=== PATIENT | female | born 1930 | race Caucasian/White ===

== ENCOUNTER → 2018-11-15 | Outpatient (CLI) | payer MEDICARE ==
[~2018-11-15] VITALS: Ht 154.9 cm; Wt 51.7 kg
[~2018-11-15] MED LIST: ACDPT PO; AMLO5TAB2 PO; ASCO-262 PO; ASPI-875 PO; CALC600T PO; CATHETER FLUSH 10 ML SYR IV PRN; CHOL200018 PO; CYCL10TA9 PO; ESTR0.455 PO; HCT25T PO; HYDR200T46 PO; KLOR CON PO; LACT1CAP8 PO; LOSA100T16 PO; MTP100TCR PO; MULT-963 PO; NAPR220T76 PO; NITR50CA28 PO; PLAQUENIL PO; POTA8TAB PO; REGADENOSON 0.4 MG/5 ML SYR (LEXISCAN) IV ONE; SMV20T PO; TRIM100T7 PO; TRM50T PO
[2018-11-15 08:22] VITALS: BP 151/71
--- NOTE | 2018-11-16 13:45 | Cardiology Stress Test Report ---
Stress Test Report Type of NM Stress Test: Test Type: LEXISCAN 0.4MG/5ML Date of Procedure/Referring: Date of Procedure: Nov 15, 2018 PCP Wesley Obrien DO Admitting Physician Welsey Obrien DO Indications: Chest pain Baseline Heart Rate: 56 Baseline Blood Pressure: Blood Pressure Systolic: 151 Blood Pressure Diastolic: 71 Baseline EKG: Baseline EKG: sinus rhythm Summary & Conclusion: Summary: The patient was brought to the stress lab after informed consent was taken. Stress test was performed according to the Lexiscan protocol. 0.4 mg of IV Lexiscan was given. Low-grade exercise was performed. Baseline EKG showed sinus rhythm at 56 BPM. Maximum heart rate was 82 bpm and blood pressure 151/71 mmHg. Patient did not have any chest pain, arrhythmias or ST segment changes during the stress test. 10.23 mCi of Myoview were given for rest imaging and 32.4 mCi of Myoview given for stress imaging. Transient ischemic dilatation score 1.31 which is likely inaccurate, EF 78 percent. Normal wall motion. Normal myocardial perfusion imaging during rest and stress. Conclusion: Pharmacological stress test was negative for ischemia. Normal LV function with no wall motion abnormalities. Normal myocardial perfusion imaging during rest and stress. Gloria CHIANG MD Nov 16, 2018 13:45
== END ==
LOC: CARD 06:22
PROVIDERS: ATTEND Internal Medicine
DX: R07.9 Chest pain, unspecified (principal)
CPT/HCPCS: 78452; 93017

== ENCOUNTER 2020-08-17 21:26 | Emergency (ER) | payer MEDICARE ==
[~2020-08-17] VITALS: Ht 152.4 cm; Wt 51.3 kg
[~2020-08-17 21:26] MED LIST changes: -CATHETER FLUSH 10 ML SYR IV PRN; -REGADENOSON 0.4 MG/5 ML SYR (LEXISCAN) IV ONE
[2020-08-17 21:35] VITALS: BP 134/79
--- NOTE | 2020-08-17 21:52 | ED EENT ---
History of Present Illness General Chief Complaint: Oral/Throat Problems Stated Complaint: TONGUE BLEEDING History of Present Illness Date Seen by Provider: August 17, 2020 Time Seen by Provider: 21:45 Initial Comments 89-year-old female presents with bleeding on her tongue. Patient was on Coumadin until a few days ago and stopped it because her INR was too high. Sta rted it for unknown cardiac concerns. Noticed some blood on the top of her tongue few hours prior to arrival and she has not been able to get it to stop bleeding. Otherwise, feeling well without any complaint. Allergies and Home Medications Allergies Coded Allergies: Levofloxacin (Verified Allergy, Severe, ANAPHYLAXIS, 09/25/07) Codeine (Verified Allergy, Unknown, 09/22/07) Etodolac (Verified Allergy, Unknown, 09/22/07) Meperidine (Verified Allergy, Unknown, 09/22/07) Nitrofurantoin (Verified Allergy, Unknown, 09/22/07) Sulfa(Sulfonamide Antibiotics) (Verified Allergy, Unknown, 09/22/07) acetaminophen (Verified Allergy, Unknown, 09/22/07) iodine (Verified Allergy, Unknown, 09/22/07) morphine (Verified Allergy, Unknown, 09/22/07) naproxen (Verified Allergy, Unknown, 09/22/07) propoxyphene (Verified Allergy, Unknown, 09/22/07) cefuroxime axetil (Unverified Allergy, NAUSEA, 07/31/12) celecoxib (Unverified Allergy, 07/31/12) ABD PAIN diphenhydramine HCl (Unverified Allergy, 07/31/12) CAUSES RESTLESS LEG SYNDROME doxycycline (Unverified Allergy, NAUSEA, 07/31/12) lansoprazole (Unverified Allergy, NAUSEA, 07/31/12) lidocaine (Unverified Allergy, 07/31/12) PT UNSURE OF REACTION nizatidine (Unverified Allergy, NAUSEA, 07/31/12) Home Medications Acetaminophen/Diphenhydramine 1 Ea Tab, 1 TAB PO HS PRN, (Reported) PRN SLEEP 25-500 MG Amlodipine Besylate 5 Mg Tablet, 5 MG PO DAILY, (Reported) WITH EVENING MEAL Ascorbate Calcium 500 Mg Tablet, 500 MG PO DAILY, (Reported) Aspirin 81 Mg Tablet.dr, 81 MG PO DAILY, (Reported) Calcium Carbonate 600 Mg Tablet, 1,200 MG PO DAILY, (Reported) Cholecalciferol (Vitamin D3) 2,000 Unit Capsule, 2,000 UNIT PO DAILY, (Reported) Cyclobenzaprine Hcl 10 Mg Tablet, 1 EACH PO Q8HR PRN, (Reported) Hydrochlorothiazide 25 Mg Tab, 25 MG PO DAILY, (Reported) Hydroxychloroquine Sulfate 200 Mg Tab, 200 MG PO DAILY, (Reported) Lactobacillus Acidophilus 1 Each Capsule, 1 CAP PO DAILY, (Reported) Losartan Potassium 100 Mg Tablet, 100 MG PO DAILY, (Reported) Metoprolol Succinate 100 Mg Tab, 150 MG PO DAILY, (Reported) Multivitamin 1 Each Tablet, 1 TAB PO DAILY, (Reported) Naproxen Sodium 220 Mg Tablet, 440 MG PO DAILY, (Reported) Nitrofurantoin Macrocrystals 50 Mg Capsule, 50 MG PO DAILY FOR 15 DAYS, (Reported) ALTERNATES EVERY 15 DAYS WITH TRIMETHOPRIM Potassium Chloride 8 Meq Tablet.sa, 16 MEQ PO DAILY, (Reported) Simvastatin 20 Mg Tab, 20 MG PO EVERY EVENING, (Reported) Tramadol Hcl 50 Mg Tab, 50 MG PO Q4H PRN, (Reported) Trimethoprim 100 Mg Tablet, 100 MG PO DAILY FOR 15 DAYS, (Reported) STARTS 5 AND TAKES FOR 15 DAY THEN ALTERNATES WITH NITROFURANTOIN FOR 15 DAYS Patient Home Medication List Home Medication List Reviewed: Yes Review of Systems Review of Systems Constitutional: No fever, No malaise, No weakness Eyes: No Symptoms Reported Ears: No Symptoms Reported Nose: no symptoms reported Mouth: see HPI, other (bleeding from tongue) Cardiovascular: no symptoms reported; No chest pain, No edema, No palpitations, No syncope Past Lqayqvp-Hefkvh-Agvcif Hx Past Med/Social Hx: Reviewed Nursing Past Med/Soc Hx Immunizations Up To Date Date of Pneumonia Vaccine: August 05, 2008 Past Medical History Reproductive Disorders: No Physical Exam Height, Weight, BMI Height: 5'1.00" Weight: 114lbs. 0.0oz. [id number]; 21.5 BMI Method: General Appearance: WD/WN, no apparent distress Nose: normal inspection; No active bleeding Mouth/Throat: normal mouth inspection, pharynx normal; No foreign body, No mandibular swelling, No maxillary swelling, No pharynx swelling, No pharynx tenderness, No tongue swollen, No tonsillar exudate, No tonsillar swelling, No trismus, No uvula swelling, No voice changes; other (very small bleeding from fi ssure in anterior dorsum of tongut. slowly oozing) Progress/Results/Core Measures Progress Progress Note : Progress Note attempted silver nitrate cautery x 2 without success, continues to slowly ooze. very small amount, but persists. Pt given a little surgicel and instructed to apply with gauze tonight follow up if not improving or worse Departure Impression Primary Impression: Excessive anticoagulation Disposition: 01 HOME, SELF-CARE Condition: Unchanged Departure-Patient Inst. Decision time for Depature: 21:51 Referrals: ARIAS OBRIEN DO (PCP/Family) Primary Care Physician Patient Instructions: Bleeding Precautions Add. Discharge Instructions: Call Dr Obrien's office tomorrow if your tongue is still bleeding. Return to the ER if worse. All discharge instructions reviewed with patient and/or family. Voiced understanding. YURY BAL DO August 17, 2020 21:52
== END 2020-08-17 22:05 | disposition home or self-care (01) ==
LOC: EDUNIT# 21:26 → ER FS 21:27
DX: T45.511A Poisoning by anticoagulants, accidental (unintentional), initial encounter (principal); K14.8 Other diseases of tongue
CPT/HCPCS: 99282

== ENCOUNTER 2020-08-18 17:00 | Day surgery (SDC) | payer MEDICARE ==
[~2020-08-18] VITALS: Wt 51.3 kg
[2020-08-18 17:10] VITALS: BP 137/88
[2020-08-18] MEDS ORDERED: PHYTONADIONE (VIT. K) 10 MG/ML AMP SQ ONE (17:15)
== END 2020-08-18 17:35 ==
LOC: SDC 17:00
PROVIDERS: ATTEND Internal Medicine
DX: R10.9 Unspecified abdominal pain (principal); R11.2 Nausea with vomiting, unspecified; I10 Essential (primary) hypertension; Z79.82 Long term (current) use of aspirin; Z79.899 Other long term (current) drug therapy; Z79.01 Long term (current) use of anticoagulants
CPT/HCPCS: 96372

== ENCOUNTER 2021-01-20 09:51 | Emergency (ER) | payer MEDICARE ==
[~2021-01-20] VITALS: Ht 154.9 cm; Wt 51.3 kg
--- NOTE | 2021-01-20 10:13 | ED Fall/Injury ---
General Chief Complaint: Trauma-Non Activation Stated Complaint: FALL Nursing Triage Note: PT AMBULATE TO ROOM FS01 WITH C/O HEAD AND NECK PAIN AFTER FALLING IN THE BATHROOM TODAY. PT AND FAMILY REPORT LOC. BUMP TO POST HEAD AND ABRASION TO UPPER BACK NOTED UPON ARRIVAL. Source: patient, family History of Present Illness Date Seen by Provider: Jan 20, 2021 Time Seen by Provider: 09:54 Initial Comments 89-year-old female presenting with family after having a fall at home. She was walking to the bathroom and tripped and fell. She lost consciousness according to family. Patient states she does not remember the fall or injury. She has a bump to the back of her scalp and in the abrasion and bruising to the upper back. She has tenderness to palpation over the thoracic spine and left of the thoracic spine between her shoulder blade and the T-spine. She has tenderness to palpation on the occiput where she has a scalp hematoma. She has some tenderness to the paraspinal muscles on the neck. She denies any numbness, tingling, weakness in her extremities, change in vision, drainage from her nose or ears, nausea or vomiting. She denies any fever or chills. She has not taken anything for pain prior to arrival. She does take Eliquis as a blood thinner. Location Injury Occurred: home Occurred: this morning Injuries/Pain Location: head, neck, chest (Upper thoracic spine and between T- spine and left shoulder blade) Context: tripped Loss of Consciousness: brief (seconds) Modifying Factors: Worse With Movement Associated Symptoms (Fall): No Abdominal Pain, No Chest Pain, No Confusion, No Dizziness; Headache (Occiput where she has a hematoma); No Lightheadedness, No Nausea/Vomiting; Neck Pain; No Ringing in Ears, No Seizures, No Shortness of Air, No Slurred Speech, No Trouble Walking, No Vision Changes Allergies and Home Medications Allergies Coded Allergies: levofloxacin (Verified Allergy, Severe, ANAPHYLAXIS, 09/25/07) Sulfa (Sulfonamide Antibiotics) (Verified Allergy, Unknown, 09/22/07) acetaminophen (Verified Allergy, Unknown, 09/22/07) cefuroxime axetil (Unverified Allergy, Unknown, NAUSEA, 08/18/20) celecoxib (Unverified Allergy, Unknown, 08/18/20) ABD PAIN codeine (Verified Allergy, Unknown, 09/22/07) diphenhydramine HCl (Unverified Allergy, Unknown, 08/18/20) CAUSES RESTLESS LEG SYNDROME doxycycline (Unverified Allergy, Unknown, NAUSEA, 08/18/20) etodolac (Verified Allergy, Unknown, 09/22/07) iodine (Verified Allergy, Unknown, 09/22/07) lansoprazole (Unverified Allergy, Unknown, NAUSEA, 08/18/20) lidocaine (Unverified Allergy, Unknown, 08/18/20) PT UNSURE OF REACTION meperidine (Verified Allergy, Unknown, 09/22/07) morphine (Verified Allergy, Unknown, 09/22/07) naproxen (Verified Allergy, Unknown, 09/22/07) nitrofurantoin (Verified Allergy, Unknown, 09/22/07) nizatidine (Unverified Allergy, Unknown, NAUSEA, 08/18/20) propoxyphene (Verified Allergy, Unknown, 09/22/07) Patient Home Medication List Home Medication List Reviewed: Yes Acetaminophen/Diphenhydramine (Tylenol Pm) 1 Ea Tab, 1 TAB PO HS PRN, (Reported) Entered as Reported by: MICHELLE SYKES on 07/31/12 1030 Amlodipine Besylate (Amlodipine Besylate) 5 Mg Tablet, 5 MG PO DAILY, (Reported) Entered as Reported by: ETELVINA VALENTINE on 10/15/09 0849 Ascorbate Calcium (Vitamin C) 500 Mg Tablet, 500 MG PO DAILY, (Reported) Entered as Reported by: MICHELLE SYKES on 07/31/12 1030 Aspirin ([place] Aspirin) 81 Mg Tablet.dr, 81 MG PO DAILY, (Reported) Entered as Reported by: MICHELLE SYKES on 07/31/12 1030 Calcium Carbonate (Calcarb 600) 600 Mg Tablet, 1,200 MG PO DAILY, (Reported) Entered as Reported by: MICHELLE SYKES on 07/31/12 1030 Cholecalciferol (Vitamin D3) (Vitamin D-3) 2,000 Unit Capsule, 2,000 UNIT PO DAILY, (Reported) Entered as Reported by: MICHELLE SYKES on 07/31/12 1030 Cyclobenzaprine Hcl (Cyclobenzaprine Hcl) 10 Mg Tablet, 1 EACH PO Q8HR PRN, (Reported) Entered as Reported by: ANAM STEWART on 08/05/12 1430 Hydrochlorothiazide (Hctz) 25 Mg Tab, 25 MG PO DAILY, (Reported) Entered as Reported by: ETELVINA VALENTINE on 10/15/09 0849 Hydroxychloroquine Sulfate (Plaquenil Nf) 200 Mg Tab, 200 MG PO DAILY, (Reported) Entered as Reported by: MICHELLE SYKES on 07/31/12 1030 Lactobacillus Acidophilus (Acidophilus) 1 Each Capsule, 1 CAP PO DAILY, (Reported) Entered as Reported by: MICHELLE SYKES on 07/31/12 1030 Losartan Potassium (Cozaar) 100 Mg Tablet, 100 MG PO DAILY, (Reported) Entered as Reported by: ETELVINA VALENTINE on 10/15/09 0849 Metoprolol Succinate (Toprol Xl) 100 Mg Tab, 150 MG PO DAILY, (Reported) Entered as Reported by: ETELVINA VALENTINE on 10/15/09 0849 Multivitamin (Multi-Vitamin Daily) 1 Each Tablet, 1 TAB PO DAILY, (Reported) Entered as Reported by: MICHELLE SYKES on 07/31/12 1030 Naproxen Sodium (Aleve) 220 Mg Tablet, 440 MG PO DAILY, (Reported) Entered as Reported by: MICHELLE SYKES on 07/31/12 1030 Nitrofurantoin Macrocrystals (Macrodantin) 50 Mg Capsule, 50 MG PO DAILY FOR 15 DAYS, (Reported) Entered as Reported by: MICHELLE SYKES on 07/31/12 1047 Potassium Chloride (Klor-Con 8) 8 Meq Tablet.sa, 16 MEQ PO DAILY, (Reported) Entered as Reported by: RONNI PABON on 10/17/09 0132 Simvastatin (Zocor) 20 Mg Tab, 20 MG PO EVERY EVENING, (Reported) Entered as Reported by: ETELVINA VALENTINE on 10/15/09 0849 Tramadol Hcl (Ultram) 50 Mg Tab, 50 MG PO Q4H PRN, (Reported) Entered as Reported by: ANAM STEWART on 08/05/12 1432 Trimethoprim (Trimethoprim) 100 Mg Tablet, 100 MG PO DAILY FOR 15 DAYS, (Reported) Entered as Reported by: MICHELLE SYKES on 07/31/12 1047 Review of Systems Review of Systems Constitutional: No chills, No dizziness, No fever Eyes: Denies Blurred Vision, Denies Photophobia, Denies Vision Changes Ears, Nose, Mouth, Throat: denies ear pain, denies ear discharge, denies nose pain, denies nose discharge, denies epistaxis Respiratory: No cough Cardiovascular: No chest pain Gastrointestinal: No nausea, No vomiting Genitourinary: No dysuria, No frequency, No hematuria Musculoskeletal: back pain (Upper thoracic back pain and bruising between left shoulder blade and T-spine), neck pain Skin: other (Hematoma to the occiput of the scalp on the left side) Psychiatric/Neurological: Headache; Denies Numbness, Denies Paresthesia, Denies Seizure, Denies Weakness Past Negzpje-Omfriq-Vjfekp Hx Patient Social History Tobacco Use?: No Past Medical History Surgeries: Yes Respiratory: No Cardiac: Yes Coronary Artery Disease Neurological: No Reproductive Disorders: No Genitourinary: No Gastrointestinal: No Musculoskeletal: Yes (LUPUS) Endocrine: No HEENT: No Cancer: No Psychosocial: No Integumentary: No Blood Disorders: No Physical Exam Vital Signs Vital Signs - First Documented 01/20/21 01/20/21 09:58 11:13 Temp 36.0 Pulse 77 Resp 16 B/P (MAP) 154/75 (101) Pulse Ox 97 O2 Delivery Room Air Capillary Refill : Less Than 3 Seconds Height, Weight, BMI Height: 5'1.00" Weight: 114lbs. 0.0oz. 51.920627kd; 21.00 BMI Method: General Appearance: WD/WN, no apparent distress HEENT: PERRL/EOMI, normal ENT inspection, TMs normal, pharynx normal; No photophobia; other (No CSF otorrhea or rhinorrhea. Negative neri sign. 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, alert, normal mood/affect, oriented x 3 Skin: normal color, warm/dry Mike Coma Score Best Eye Response: (4) Open Spontaneously Best Verbal Response: (5) Oriented Best Motor Response: (6) Obeys Commands [place] Total: 15 Progress/Results/Core Measures Results/Orders Lab Results Laboratory Tests Test 01/20/21 10:12 Range/Units White Blood Count 7.1 4.3-11.0 10^3/uL Red Blood Count 3.85 3.80-5.11 10^6/uL Hemoglobin 12.6 11.5-16.0 g/dL Hematocrit 38 35-52 % Mean Corpuscular Volume 98 80-99 fL Mean Corpuscular Hemoglobin 33 25-34 pg Mean Corpuscular Hemoglobin Concent 33 32-36 g/dL Red Cell Distribution Width 12.2 10.0-14.5 % Platelet Count 221 130-400 10^3/uL Mean Platelet Volume 9.6 9.0-12.2 fL Immature Granulocyte % (Auto) 0 % Neutrophils (%) (Auto) 70 42-75 % Lymphocytes (%) (Auto) 12 12-44 % Monocytes (%) (Auto) 10 0-12 % Eosinophils (%) (Auto) 7 0-10 % Basophils (%) (Auto) 1 0-10 % Neutrophils # (Auto) 5.0 1.8-7.8 X 10^3 Lymphocytes # (Auto) 0.9 L 1.0-4.0 X 10^3 Monocytes # (Auto) 0.7 0.0-1.0 X 10^3 Eosinophils # (Auto) 0.5 H 0.0-0.3 10^3/uL Basophils # (Auto) 0.1 0.0-0.1 10^3/uL Immature Granulocyte # (Auto) 0.0 0.0-0.1 10^3/uL Prothrombin Time 22.4 H 12.2-14.7 SEC INR Comment 1.9 H 0.8-1.4 Activated Partial Thromboplast Time 37 H 24-35 SEC Sodium Level 140 135-145 MMOL/L Potassium Level 5.6 H 3.6-5.0 MMOL/L Chloride Level 107 98-107 MMOL/L Carbon Dioxide Level 25 21-32 MMOL/L Anion Gap 8 5-14 MMOL/L Blood Urea Nitrogen 31 H 7-18 MG/DL Creatinine 1.47 H 0.60-1.30 MG/DL Estimat Glomerular Filtration Rate 34 BUN/Creatinine Ratio 21 Glucose Level 120 H 70-105 MG/DL Calcium Level 10.0 8.5-10.1 MG/DL Corrected Calcium 8.5-10.1 MG/DL Total Bilirubin 0.4 0.1-1.0 MG/DL Aspartate Amino Transf (AST/SGOT) 30 5-34 U/L Alanine Aminotransferase (ALT/SGPT) 14 0-55 U/L Alkaline Phosphatase 78 40-136 U/L Total Protein 7.2 6.4-8.2 GM/DL Albumin 4.6 H 3.2-4.5 GM/DL My Orders Orders - JONAS CARRERA MD Ct Head/Cervical Spine Wo (01/20/21 10:04) Ct Chest Wo (01/20/21 10:04) Ice: Apply To Affected Area (01/20/21 10:04) Head Of Bed Q4H (01/20/21 10:04) Cbc With Automated Diff (01/20/21 10:06) Comprehensive Metabolic Panel (01/20/21 10:06) Protime With Inr (01/20/21 10:06) Partial Thromboplastin Time (01/20/21 10:06) Acetaminophen Tablet/Caplet (Tylenol T (01/20/21 10:25) Vital Signs/I&O 01/20/21 01/20/21 09:58 11:13 Temp 36.0 Pulse 77 82 Resp 16 16 B/P (MAP) 154/75 (101) 141/73 Pulse Ox 97 O2 Delivery Room Air Room Air Blood Pressure Mean: 101 Progress Progress Note #1: Progress Note With her having loss of consciousness and not remembering the fall will obtain CT scan of the head, cervical spine, chest to include the thoracic spine and ribs. Give Tylenol for pain. Ice and elevation of her head. Check basic labs to see if there was a UTI or electrolyte imbalance that might of contributed to her fall. Differential diagnosis includes urinary tract infection, subdural hematoma, subarachnoid hematoma, cervical spine fracture, thoracic spine fracture, rib fracture, electrolyte imbalance. Progress Note #2: Time: 10:[address] scans of the head, cervical spine, chest with thoracic spine do not show any acute fracture or intracranial hemorrhage. She does have a paratracheal lymph n ode measuring 1.7 cm. She has no obvious rib fractures or spine fractures. CBC is stable without acute significant abnormality. Her coags are elevated to go along with being on anticoagulants. Awaiting chemistry. Progress Note #3: Time: 10:56 Progress Note Chemistry shows mild renal insufficiency and mild elevation of potassium. Will encourage patient to drink more fluids. Counseled on test results and imaging. Advised to follow-up through the clinic for monitoring and if any further testing needs to be done about the enlarged lymph node in the chest. Since patient has no urinary tract complaints will cancel the UA. Encourage patient to drink more fluids at home. Diagnostic Imaging Diagonstic Imaging: CT Plain Films/CT/US/NM/MRI: c-spine, head Comments NAME: ALYSE MISHRA [facility] REC#: [id number] PT STATUS: REG ER : 1930 PHYSICIAN: JONAS CARRERA MD ADMIT DATE: 01/20/21/ER FS Signed Date of Exam:01/20/21 CT HEAD/CERVICAL SPINE WO EXAMINATION: CT head and CT cervical spine without contrast. TECHNIQUE: Multiple contiguous axial images were obtained through the brain and cervical spine without the use of intravenous contrast. Sagittal and coronal reformations through the cervical spine were then performed. All CT scans use one or more of the following dose optimizing techniques: automated exposure control, MA and/or KvP adjustment based on patient size and exam type or iterative reconstruction. HISTORY: Fall onto head and neck with pain. COMPARISON: CT head from 04/10/2013. FINDINGS: HEAD: Mild diffuse cerebral volume loss with proportional enlargement of the ventricles and sulci. Mild hypodensities throughout the supratentorial white matter of both cerebral hemispheres. No acute intracranial hemorrhage or abnormal extra-axial fluid collections are present. Calcification of the intracranial ICAs. No hyperdense vessel. The calvarium is intact. The mastoid air cells are clear. The visualized paranasal sinuses are clear. Surgical changes from bilateral cataract repair. There is a left posterior scalp hematoma. C-SPINE: Vertebral body height and alignment are preserved. No acute fracture, dislocation, or destructive osseous process. Multilevel facet hypertrophy without perched facets. Mild multilevel cervical spondylosis. The paraspinous soft tissues are normal. The visualized thyroid gland is normal. The visualized lung apices are normal. IMPRESSION: 1. No acute intracranial abnormality. Mild chronic microangiopathy and volume loss. 2. Degenerative changes of the cervical spine without acute osseous abnormality. 3. Left posterior scalp hematoma without underlying calvarial fracture. Dictated by: Dictated on workstation # [id number] Dict: 01/20/210 Trans: 01/20/21 1036 [id number] [id number] Interpreted by: YUDI CARRILLO DO Electronically signed by: YUDI CARRILLO DO 01/20/21 1036 Reviewed: Reviewed by [place] Diagonstic Imaging: CT Plain Films/CT/US/NM/MRI: chest Comments [facility] [place] [place] NAME: ALYSE MISHRA [facility] REC#: [id number] PT STATUS: REG ER : 1930 PHYSICIAN: JONAS CARRERA MD ADMIT DATE: 01/20/21/ER FS Signed Date of Exam:01/20/21 CT CHEST WO EXAMINATION: CT chest without contrast. TECHNIQUE: Multiple contiguous axial images were obtained through the chest without the use of intravenous contrast. All CT scans use one or more of the following dose optimizing techniques: automated exposure control, MA and/or KvP adjustment based on patient size and exam type or iterative reconstruction. HISTORY: Fall onto chest with pain COMPARISON: None available. FINDINGS: Thyroid: The thyroid is normal. Mediastinum: Heart size is normal without significant pericardial effusion. Calcifications of the aorta and coronary vessels. Thoracic aorta is normal in caliber. There is an enlarged pretracheal lymph node measuring up to 1.7 cm short axis. Additional calcified mediastinal lymph nodes are present. Lungs and airways: There is a calcified granuloma within the left lung. Scattered areas of atelectasis or scarring. No consolidation, pleural effusion, or pneumothorax. The airways are normal. Upper abdomen: The subphrenic structures are normal. Musculoskeletal: Degenerative changes of the spine without suspicious osseous lesion or compression fracture. There is a soft tissue contusion overlying the left upper back. IMPRESSION: 1. No acute abnormality in the chest. 2. Indeterminate enlarged mediastinal lymph node. 3. Calcified granulomatous disease. 4. Left upper back soft tissue contusion. No acute fracture is seen. Dictated by: Dictated on workstation # [id number] Dict: 01/20/21 1037 Trans: 01/20/21 1043 [facility] [id number] Interpreted by: YUDI CARRILLO DO Electronically signed by: YUDI CARRILLO DO 01/20/21 1043 Reviewed: Reviewed by Me Departure Impression Primary Impression: Hematoma of occipital region of scalp Additional Impressions: Fall at home Qualified Codes: W19.XXXA - Unspecified fall, initial encounter; Y92.009 - Unspecified place in unspecified non-institutional (private) residence as the place of occurrence of the external cause Closed head injury with brief loss of consciousness Acute upper back pain Contusion of bilateral back wall of thorax, initial encounter Renal insufficiency Enlargement of lymph node Disposition: HOME, SELF-CARE Condition: Stable Departure-Patient Inst. Decision time for Depature: 11:00 Referrals: NELI GARNER MD (PCP/Family) Primary Care Physician Patient Instructions: HEMATOMA, Minor Head Injury, Adult ED, Preventing Falls ED, Upper Back Pain ED Add. Discharge Instructions: No fractures or broken bones seen on CT scans and no bleeding internally. Use Ice pack 15-20 minutes every few hours as needed for scalp hematoma and bruising to upper back. After 2-3 days you could alternate with heat. Try to keep your head elevated at least 30-45 degrees to help limit the swelling from the hematoma of scalp. This may cause you to have some bruising down your neck and upper back. There is an enlarged lymph node by your trachea that is measuring 1.7 cm, or just about 1/2 inch. Follow up with your regular provider for monitoring of this and to see if any further testing is needed. May use Acetaminophen 650 mg every 6 hours as needed for pain. Drink plenty of water to help with hydration and mild renal insufficiency. All discharge instructions reviewed with patient and/or family. Voiced understa nding. JONAS CARRERA MD Jan 20, 2021 10:13
[2021-01-20] MEDS ORDERED: ACETAMINOPHEN 325 MG TABLET PO STA (10:25)
[2021-01-20 10:30] LABS: BASOPHILS % (AUTO) 1 % (0-10); EOSINOPHILS % (AUTO) 7 % (0-10); HEMATOCRIT 38 % (35-52); HEMOGLOBIN 12.6 g/dL (11.5-16.0); LYMPHOCYTES % (AUTO) 12 % (12-44); MEAN CORPUSCULAR HEMOGLOBIN 33 pg (25-34); MEAN CORPUSCULAR HGB CONC 33 g/dL (32-36); MEAN CORPUSCULAR VOLUME 98 fL (80-99); MEAN PLATELET VOLUME 9.6 fL (9.0-12.2); MONOCYTES % (AUTO) 10 % (0-12); NEUTROPHILS % (AUTO) 70 % (42-75); PLATELET COUNT 221 10^3/uL (130-400); WHITE BLOOD COUNT 7.1 10^3/uL (4.3-11.0)
[2021-01-20 10:31] LABS: BASOPHILS # (AUTO) 0.1 10^3/uL (0.0-0.1); EOSINOPHILS # (AUTO) 0.5 10^3/uL (0.0-0.3); LYMPHOCYTES # (AUTO) 0.9 X 10^3 (1.0-4.0); MONOCYTES # (AUTO) 0.7 X 10^3 (0.0-1.0)
--- NOTE | 2021-01-20 10:36 | Diagnostic Imaging Report ---
EXAMINATION: CT head and CT cervical spine without contrast. TECHNIQUE: Multiple contiguous axial images were obtained through the brain and cervical spine without the use of intravenous contrast. Sagittal and coronal reformations through the cervical spine were then performed. All CT scans use one or more of the following dose optimizing techniques: automated exposure control, MA and/or KvP adjustment based on patient size and exam type or iterative reconstruction. HISTORY: Fall onto head and neck with pain. COMPARISON: CT head from 04/10/2013. FINDINGS: HEAD: Mild diffuse cerebral volume loss with proportional enlargement of the ventricles and sulci. Mild hypodensities throughout the supratentorial white matter of both cerebral hemispheres. No acute intracranial hemorrhage or abnormal extra-axial fluid collections are present. Calcification of the intracranial ICAs. No hyperdense vessel. The calvarium is intact. The mastoid air cells are clear. The visualized paranasal sinuses are clear. Surgical changes from bilateral cataract repair. There is a left posterior scalp hematoma. C-SPINE: Vertebral body height and alignment are preserved. No acute fracture, dislocation, or destructive osseous process. Multilevel facet hypertrophy without perched facets. Mild multilevel cervical spondylosis. The paraspinous soft tissues are normal. The visualized thyroid gland is normal. The visualized lung apices are normal. IMPRESSION: 1. No acute intracranial abnormality. Mild chronic microangiopathy and volume loss. 2. Degenerative changes of the cervical spine without acute osseous abnormality. 3. Left posterior scalp hematoma without underlying calvarial fracture. Dictated by: Dictated on workstation # [id number]
[2021-01-20 10:41] LABS: INR 1.9 (0.8-1.4); PROTHROMBIN TIME PATIENT 22.4 SEC (12.2-14.7)
--- NOTE | 2021-01-20 10:44 | Diagnostic Imaging Report ---
EXAMINATION: CT chest without contrast. TECHNIQUE: Multiple contiguous axial images were obtained through the chest without the use of intravenous contrast. All CT scans use one or more of the following dose optimizing techniques: automated exposure control, MA and/or KvP adjustment based on patient size and exam type or iterative reconstruction. HISTORY: Fall onto chest with pain COMPARISON: None available. FINDINGS: Thyroid: The thyroid is normal. Mediastinum: Heart size is normal without significant pericardial effusion. Calcifications of the aorta and coronary vessels. Thoracic aorta is normal in caliber. There is an enlarged pretracheal lymph node measuring up to 1.7 cm short axis. Additional calcified mediastinal lymph nodes are present. Lungs and airways: There is a calcified granuloma within the left lung. Scattered areas of atelectasis or scarring. No consolidation, pleural effusion, or pneumothorax. The airways are normal. Upper abdomen: The subphrenic structures are normal. Musculoskeletal: Degenerative changes of the spine without suspicious osseous lesion or compression fracture. There is a soft tissue contusion overlying the left upper back. IMPRESSION: 1. No acute abnormality in the chest. 2. Indeterminate enlarged mediastinal lymph node. 3. Calcified granulomatous disease. 4. Left upper back soft tissue contusion. No acute fracture is seen. Dictated by: Dictated on workstation # [id number]
[2021-01-20 10:55] LABS: CARBON DIOXIDE 25 MMOL/L (21-32); CHLORIDE 107 MMOL/L (98-107); POTASSIUM 5.6 MMOL/L (3.6-5.0); SODIUM 140 MMOL/L (135-145)
[2021-01-20 10:56] LABS: ALANINE AMINOTRANSFERASE 14 U/L (0-55); ALBUMIN 4.6 GM/DL (3.2-4.5); ALKALINE PHOSPHATASE 78 U/L (40-136); BILIRUBIN,TOTAL 0.4 MG/DL (0.1-1.0); BUN/CREATININE RATIO 21; CREATININE SERUM 1.47 MG/DL (0.60-1.30); GFR ESTIMATED 34; GLUCOSE 120 MG/DL (70-105); TOTAL PROTEIN 7.2 GM/DL (6.4-8.2)
[2021-01-20 11:13] VITALS: BP 141/73
== END 2021-01-20 11:13 | disposition home or self-care (01) ==
LOC: EDUNIT# 09:51 → ER FS 09:52
DX: S00.03XA Contusion of scalp, initial encounter (principal); S20.223A Contusion of bilateral back wall of thorax, initial encounter; S06.9X9A Unspecified intracranial injury with loss of consciousness of unspecified duration, initial encounter; N28.9 Disorder of kidney and ureter, unspecified; R59.9 Enlarged lymph nodes, unspecified; I25.10 Atherosclerotic heart disease of native coronary artery without angina pectoris; R40.2410 Glasgow coma scale score 13-15, unspecified time; Z79.899 Other long term (current) drug therapy; Z79.82 Long term (current) use of aspirin; W01.0XXA Fall on same level from slipping, tripping and stumbling without subsequent striking against object, initial encounter; Y92.009 Unspecified place in unspecified non-institutional (private) residence as the place of occurrence of the external cause
CPT/HCPCS: 36415; 70450; 71250; 72125; 80053; 85025; 85610; 85730